=== PATIENT | female | born 1965 | race Caucasian/White ===

== ENCOUNTER → 2019-11-12 | Outpatient (CLI) | payer BC ==
[~2019-11-12] MED LIST: ALKASELTZER; ANTIVERT 25MG25 MG PO; CARAFATE 1GM1 G PO; CARAFATE S1 GM/10 ML PO; CLEOCIN HCL300 MG PO; COZAAR 25MG25 MG/TAB PO; FLEXERIL 1010 MG/TAB PO; FLEXERIL10 MG PO; KAPIDEX60 MG PO; LOPRESSOR 225 MG/TAB PO; NORCO 325 MG-51 TAB PO; OXY IR5 MG PO; PAMELOR 10MG10 MG; PAMELOR 25MG25 MG PO; RANITIDINE150 MG PO; SYNTHROID0.088 MG/T PO; SYNTHROID0.112 MG/T PO; TOPROL XL 50MG50 MG PO; TORADOL 10MG TA10 MG PO; VALIUM 5MG T5 MG/TAB PO; ZITHROMAX Z PA250 MG PO; [UNRECOGNIZED DRUG - OTHER]
== END ==
LOC: COL.RAD 09:37
DX: M51.36 Other intervertebral disc degeneration, lumbar region (principal); R59.0 Localized enlarged lymph nodes
CPT/HCPCS: Q9967